=== PATIENT | female | born 1955 | race Caucasian/White ===

== ENCOUNTER 2019-08-18 10:00 | Day surgery (SDC) | payer OTHER ==
[~2019-08-18] VITALS: Ht 170.2 cm; Wt 71.7 kg
[2019-08-18 10:43] LABS: HEMOGLOBIN 14.3 g/dL (12-16); MCV 88.1 fL (80.0-100.0); MEAN PLATELET VOLUME 8.6 fL (7.4-10.4); RBC 4.77 10x6/uL (4.00-5.40); RDW 13.4 % (11.5-14.5)
[2019-08-18 14:00] VITALS: BP 138/60; Ht 170.2 cm; Wt 71.7 kg
[2019-08-18] MEDS ORDERED: HYDROCODON-ACE1 EAC7 PO (14:19)
[2019-08-18] MEDS ORDERED: SMZ-TMP DS 800-1 TAB PO (17:14)
--- NOTE | 2019-08-19 08:33 | OP ---
PATIENT NAME: NIKOLAI NICHOLE MEDICAL RECORD: [id number] :53 LOCATION:D.OPS ADMISSION DATE: SURGEON: SARA POLK MD DATE OF OPERATION: 08/18/2019 SURGEON: Sara Polk MD PREOPERATIVE DIAGNOSES: Left ankle epidermoid cyst, right anterior neck epidermoid cyst. POSTOPERATIVE DIAGNOSES: Left ankle epidermoid cyst, right anterior neck epidermoid cyst, and right anterior lymphadenopathy. PROCEDURES PERFORMED: 1. Excisional biopsy of left ankle epidermoid cyst approximately 2 x 2 x 2 cm. 2. Excisional biopsy of right anterior neck epidermoid cyst 4 x 3 x 4 cm. 3. Excisional biopsy of right anterior lymph node 6 x 6 x 5 cm. ANESTHESIA: General. COMPLICATIONS: None. SPECIMENS: As listed. ESTIMATED BLOOD LOSS: Class clean. OPERATIVE COURSE: After consent was obtained, the patient was taken to the operating room and placed in supine position on the operating table. The left ankle and right neck were prepped and draped in typical sterile fashion. Timeout was taken to confirm correct patient and procedure. Local anesthetic injected prior to incision at the left ankle approximately 10 cc. An elliptical incision was made approximately 2 cm in length and 1 cm in width over the cyst of the medial aspect of the left ankle, the incision was made with 15 blade scalpel. Dissection continued with Metzenbaum scissors. The mass was excised circumferentially dissected with Metzenbaum scissors. The excised without rupture into the cavity and sent for permanent pathology. The incision was closed with 4-0 Monocryl subcuticular suture, Mastisol and Steri-Strips. Next, our attention was paid to the right anterior neck. 20 cc of local anesthetic were injected. Once again, an elliptical incision was made with a #15 blade scalpel approximately 5 cm in length x 3 cm in width with dissection continued to the epidermis and dermis with #15 blade scalpel. The epidermoid cyst was circumferentially dissected using Metzenbaum scissors. Once the cyst was excised a pathologically enlarged lymph node was encountered just inferior to the cyst. It was approximately 6 x 6 x 5 cm. The lymph node was circumferentially dissected using sharp scissor and Metzenbaum scissor dissection. Lymphatic ducts were taken with the small clip scientific informatics analyst. This was done until the node was circumferentially dissected, it was sent for permanent pathology. Hemostasis obtained with electrocautery and small clip scientific informatics analyst. The subcutaneous tissue was copiously irrigated and suctioned. The wound was closed in multiple layers. The deep layer was closed with 3-0 Vicryl suture. The subcutaneous tissue was closed with 3-0 Vicryl suture. Skin was closed with 4-0 OPERATIVE REPORT [id number] DAYANARA,NIKOLAI Monocryl, Mastisol, and Steri-Strips. At the end of the case, all needle and instrument counts were correct. No complications occurred. The patient was extubated and transferred to PACU in stable condition. 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
== END 2019-08-18 19:12 | disposition home or self-care (01) ==
LOC: D.OPS 10:00 → D.PAN 12:15 → D.OPS 19:12
PROVIDERS: Anesthesiology; ATTEND Surgery
DX: L72.8 Other follicular cysts of the skin and subcutaneous tissue (principal); R59.1 Generalized enlarged lymph nodes